=== PATIENT | female | born 1965 | race Caucasian/White ===

== ENCOUNTER 2019-02-22 18:08 | Emergency (ER) | payer OTHER, SELFPAY ==
[2019-02-22 18:20] VITALS: BP 183/84; PULSE 75; RESP 20; TEMP 36.6; O2SAT 98; BMI 46.3
--- NOTE | 2019-02-22 18:38 | ED.EYEPROB ---
HPI - Eye Problem General Chief complaint: Eye Problems Stated complaint: LEFT EYE POSSIBLE FOREIGN BODY Time Seen by Provider: 02/22/19 18:31 Source: patient Mode of arrival: Ambulatory Limitations: no limitations History of Present Illness HPI Narrative: Patient is a 54-year-old female who presents with left eye pain. She was at at her preschool when a child long stand and trouble. It did hit her in the eye. She tried to rinse it out immediately at the eye wash station but still feels like there is something in it. It is quite irritating sensitive to light MD chief complaint: eye pain Location: left eye Eye Symptoms: foreign body sensation Place: work Severity: moderate If Pain, Quality: sharp Related Data Home Medications Medication Instructions Recorded Confirmed levothyroxine [Synthroid] #0 04/25/17 Previous Rx's Medication Instructions Recorded tramadol 50 mg PO Q6HP PRN #20 tab 04/25/17 polymyxin B sulf-trimethoprim 2 drop EYE-LEFT Q4HRWA #10 ml 02/22/19 [Polytrim] Allergies Allergy/AdvReac Type Severity Reaction Status Date / Time No Known Allergies Allergy Uncoded 08/03/17 12:50 Review of Systems Review of Systems Narrative: GENERAL: Denies chills,fever HEENT: See HPI Denies throat pain RESPIRATORY: Denies dyspnea, cough, wheezing CARDIOVASCULAR: Denies chest pain, palpitations GASTROINTESTINAL: Denies nausea, vomiting MUSCULOSKELETAL: Denies extremity pain, injury SKIN: No rash, no laceration, no pruritus NEUROLOGIC: Denies weakness, dizziness, headache, numbness 8 point review of systems is negative except for those stated above and HPI Patient History Social History Smoking Status: Never smoker alcohol intake frequency: a few times a month Substance Use Type: does not use Exam Initial Vital Signs Initial Vital Signs: Vital Signs Temperature 97.9 F 02/22/19 18:20 Pulse Rate 75 02/22/19 18:20 Respiratory Rate 20 02/22/19 18:20 Blood Pressure 183/84 H 02/22/19 18:20 Pulse Oximetry 98 02/22/19 18:20 GENERAL: Well-appearing, well-nourished and in no acute distress. CARDIOVASCULAR: peripheral pulses in tact, cap refill <2 sec RESPIRATORY: No respiratory distress, speaks in full sentences without difficulty EXTREMITIES: Normal range of motion, no clubbing or edema. Neurovascularly intact NEUROLOGICAL: Cranial nerves II through XII grossly intact. Normal gait and speech. SKIN: Warm, dry, no petechiae, no rashes or lesions. Eyes General: appearance normal, both eyes and all related structures Alignment and Position: alignment normal Eyelids: eyelids normal Conjunctivae: conjunctival abnormality left conjunctival injection (Contusion at 10:00 to 2:00 no a.m. body. eye is irrigated with normal saline) Pupils: PERRL Course Orders Ordered: Discontinued Medications Erythromycin (Erythromycin Ophth Oint) 1 applic EYE-LEFT NOW ONE Stop: 02/22/19 19:16 Last Admin: 02/22/19 19:24 Dose: 1 applic Documented by: AIME Proparacaine HCl (Parcaine 0.5% Ophth Rosario) 1 drops EYE-LEFT NOW ONE Stop: 02/22/19 18:46 Last Admin: 02/22/19 19:00 Dose: 1 drop Documented by: AIME Vital Signs Vital signs: Vital Signs - 8 hr 02/22/19 18:20 02/22/19 19:20 Temperature 97.9 F Pulse Rate 75 58 L Respiratory Rate 20 16 Blood Pressure 183/84 H Blood Pressure [Right Wrist] 162/87 H Pulse Oximetry 98 98 Discharge Plan Departure Patient Disposition: Home Clinical Impression: Corneal abrasion Qualifiers: Encounter type: initial encounter Laterality: left Qualified Code(s): S05.02XA - Injury of conjunctiva and corneal abrasion without foreign body, left eye, initial encounter Discharge Date/Time: 02/22/19 19:26 Instructions: DI for Corneal Abrasion Activity Restrictions/Additional Instructions: *You have been diagnosed with corneal abrasion left eye *What to do: Eye will be sensitive to light. *Continue to take medications as directed Tylenol 1000 mg every 6 hours if needed for mild to moderate pain Ibuprofen 800 mg every 8 hours if needed for [id number] pain Erythromycin ointment at nighttime to help with soothing and Polytrim drops every 4 hours while awake for 7 days *Follow up with your primary care provider in 2-3 days *Return to ER if you should have increasing pain, redness, blurry vision or any new, worsening or concerning symptoms Prescriptions: New polymyxin B sulf-trimethoprim [Polytrim] 10,000 unit- 1 mg/mL drops 2 drop EYE-LEFT Q4HRWA Qty: 10 RF: 0 No Action levothyroxine [Synthroid] 112 MCG tablet Qty: 0 RF: 0 tramadol 50 MG tablet 50 mg PO Q6HP PRNQty: 20 RF: 0 [facility] [Provider Group]
[2019-02-22] MEDS: PROPARACAINE 0.5% OPHTH SOL 1 DROPS EYE-LEFT (19:00)
[2019-02-22 19:20] VITALS: BP 162/87; PULSE 58; RESP 16; O2SAT 98
[2019-02-22] MEDS: ERYTHROMYCIN OPHTH 1 GM OINT 1 APPLIC EYE-LEFT (19:24)
== END 2019-02-22 19:26 | disposition home or self-care (01) ==
PROVIDERS: Emergency Provider Emergency Medicine
DX: S05.02XA Injury of conjunctiva and corneal abrasion without foreign body, left eye, initial encounter (principal); W51.XXXA Accidental striking against or bumped into by another person, initial encounter; Y99.0 Civilian activity done for income or pay
CPT/HCPCS: 99283